=== PATIENT | male | born 1990 | race Hispanic/Latino ===

== ENCOUNTER → 2018-01-04 | Outpatient (CLI) | payer OTHER ==
[~2018-01-04] MED LIST: GADOBENATE DIMEGLUMINE 1 ML IV ONE
--- NOTE | 2018-01-04 09:39 | Diagnostic Imaging Report ---
Examination: MRI SPINE LUMBAR WITHOUT CONTRAST History: Right sided low back pain after twisting injury. Comparison studies: None Technique: Sagittal, coronal and axial T2 , sagittal T1 and STIR; axial spin density oblique. Findings: Number of lumbar vertebral bodies: Five. Alignment: Normal lordosis. No scoliosis. Soft tissues: No T2 hyperintense inflammatory changes. Posterior paraspinal soft tissues and muscles: No abnormality. Lower thoracic cord: Normal in signal and morphology. The tip of the conus is at T12-L1. Cauda equina: No masses. No arachnoiditis. Vertebrae: No fractures, infection or neoplasm. Degenerative changes: L1-L2 and L2-L3: No abnormalities. L3-L4: No degenerative disc or foraminal stenosis. In the anterior epidural space from mid L3 through the bottom of L4, there is a 4.5 x 0.6 x 1.9 cm (superoinferior x anteroposterior x transverse dimensions) ovoid shaped, T2 centrally hyperintense and peripheral rind of T2 hypointensity lesion, which results in severe canal stenosis particularly at L3-L4. L4-L5: Grade I anterolisthesis due to bilateral pars defects. Uncovering of a diffuse disc bulge and mild bilateral facet arthropathy result in mild bilateral neural foraminal narrowing. No canal stenosis. L5-S1: No abnormalities. IMPRESSION: 1. Findings as described above are concerning for anterior epidural hematoma spanning L3 and L4 and causing severe canal stenosis. Alternatively, this could represent a mass, and therefore, a contrast enhanced MRI is recommended for further evaluation. 2. Bilateral isthmic spondylolisthesis at L4-L5 without canal or significant (not moderate or severe) foraminal stenosis. A message was left on the voicemail of Dr. Kelsey's communications assistant's phone on 01/04/2018 at 935 hours with request to callback to discuss imaging findings. Signed by: Dr. Kalee Leung M.D. on 01/04/2018 9:36 AM
--- OUTSIDE RECORDS SUMMARY | 2018-01-04 15:11 | XMS REPORT ---
Author [facility] Address Unknown Phone Unavailable Care Team Providers Care Transportation Planning Engineer Name Role Phone ARCHANA KELSEY Unavailable Unavailable Problems This patient has no known problems. Allergies, Adverse Reactions, Alerts This patient has no known allergies or adverse reactions. Medications This patient has no known medications. Results Test Description Test Time Test Comments Text Results Atomic Results Result Comments MRI SPINE LUMBAR [place] [address] Patient Name: YOKASTA AMADOR MR #: [id number] : 1990 Age/Sex: 27/M Req #: [id number] Adm Physician: Ordered by: ARCHANA KELSEY DO Report #: [id number] Location: MRI Room/Bed: Procedure: [id number] MRI/MRI SPINE LUMBAR WO Exam Date: Exam Time: REPORT STATUS: Signed Examination: MRI SPINE LUMBAR WITHOUT CONTRAST History: Right sided low back pain after twisting injury. Comparison studies: None Technique: Sagittal, coronal and axial T2 , sagittal T1 and STIR; axial spin density oblique. Findings: Number of lumbar vertebral bodies: Five. Alignment: Normal lordosis. No scoliosis. Soft tissues: No T2 hyperintense inflammatory changes. Posterior paraspinal soft tissues and muscles: No abnormality. Lower thoracic cord: Normal in signal and morphology. The tip of the conus is at T12-L1. Cauda equina: No masses. No arachnoiditis. Vertebrae: No fractures, infection or neoplasm. Degenerative changes: L1-L2 and L2-L3: No abnormalities. L3-L4: No degenerative disc or foraminal stenosis. In the anterior epidural space from mid L3 through the bottom of L4, there is a 4.5 x 0.6 x 1.9 cm (superoinferior x anteroposterior x transverse dimensions) ovoid shaped, T2 centrally hyperintense and peripheral rind of T2 hypointensity lesion, which results in severe canal stenosis particularly at L3-L4. L4 -L5: Grade I anterolisthesis due to bilateral pars defects. Uncovering of a diffuse disc bulge and mild bilateral facet arthropathy result in mild bilateral neural foraminal narrowing. No canal stenosis. L5-S1: No abnormalities. IMPRESSION: 1. Findings as described above are concerning for anterior epidural hematoma spanning L3 and L4 and causing severe canal stenosis. Alternatively, this could represent a mass, and therefore, a contrast enhanced MRI is recommended for further evaluation. 2. Bilateral isthmic spondylolisthesis at L4-L5 without canal or significant (not moderate or severe) foraminal stenosis. A message was left on the voicemail of Dr. Kelsey's trust manager assistant's phone on 01/04/2018 at 935 hours with request to callback to discuss imaging findings. Signed by: Dr. Kalee Leung M.D. on 01/04/2018 9:36 AM Dictated By: KALEE CHAPPELL MD Transcribed By: BRIANNE on 01/04/18935 COPY TO: ARCHANA KELSEY DO
--- NOTE | 2018-01-05 09:03 | Diagnostic Imaging Report ---
History: Lumbar strain Comparison studies: Noncontrast lumbar spine MRI performed on the same date (01/04/2018). Technique: Postcontrast sagittal and axial T1 FS and axial T2. Intravenous contrast: IV contrast: 20 cc MultiHance Findings: In keeping with convention of the previous lumbar spine numbering is considered that there is transitional lumbosacral anatomy and at there is a partially L5 vertebral body with pseudoarthrosis on the right. Alignment: Mild hyperlordosis at L5-S1 where there is a 6 mm anterolisthesis of L5 on S1 due to chronic bilateral pars and articular defects. No scoliosis. Soft tissues: Enhancement in the ventral epidural space from L3 through S1 is favored to represent prominent epidural venous plexus which results in moderate narrowing of the canal at the L3 and L4 levels. No rim-enhancing fluid collection/abscess. Paraspinal muscles: No signal abnormalities. Well-preserved. No atrophic changes Lower thoracic cord: Normal in signal and morphology. The tip of the conus is at the superior L1. Cauda equina: No masses. No arachnoiditis. No enhancing abnormalities. Vertebrae: No compression fractures, infection or neoplasm. Degenerative changes: L1-L2: No abnormalities L2-L3: No abnormalities L3-L4: No disc herniation. No foraminal stenosis. L4-L5: Grade 1 anterolisthesis of L4 and L5 with associated uncovered disc/disc bulge and mild facet arthrosis with moderate bilateral foraminal stenosis. L5-S1: Transitional level. Patent canal and foramina. IMPRESSION: 1. Transitional lumbosacral anatomy as described. 2. Enhancement in the ventral epidural space from L3 to S1 which result in moderate narrowing of the canal at L3 and at L4 is favored represent prominent epidural venous plexus and less likely evolving epidural hematoma. Follow-up lumbar spine MRI with IV contrast could be considered to document stability in 1to 3 months (or sooner as clinically warranted). 3. Chronic Grade 1 L4 isthmic spondylolisthesis with moderate bilateral foraminal stenosis at L4-L5. Signed by: Dr. Jose L Shah M.D. on 01/05/2018 8:59 AM
== END | disposition home or self-care (01) ==
LOC: MRI 07:20 → RAD 15:09
PROVIDERS: ATTEND Family Medicine
DX: S39.012A Strain of muscle, fascia and tendon of lower back, initial encounter (principal); M43.16 Spondylolisthesis, lumbar region; X58.XXXA Exposure to other specified factors, initial encounter
CPT/HCPCS: 72148; 72149